=== PATIENT | female | born 1975 | race Caucasian/White ===

== ENCOUNTER 2021-07-12 15:00 | Emergency (ER) | payer BC ==
[~2021-07-12] VITALS: Ht 167 cm; Wt 72.5 kg
[~2021-07-12 15:00] MED LIST: CRS350T PO; DULO60CA6 PO; HYDR-2890 PO; HYDR1TAB PO; LORA-794 PO; METH4TAB PO; POTA20LI2 PO; SERT50TA PO
[2021-07-12] MEDS ORDERED: PROMETHAZINE INJ 25 MG/ML (PHENERGAN) AMP IVP ONE (15:30)
[2021-07-12 15:38] LABS: BASOPHILS % (AUTO) 0 % (0-10); EOSINOPHILS # (AUTO) 0.1 10^3/uL (0.0-0.3); EOSINOPHILS % (AUTO) 2 % (0-10); HEMATOCRIT 42 % (35-52); LYMPHOCYTES # (AUTO) 2.1 X 10^3 (1.0-4.0); LYMPHOCYTES % (AUTO) 32 % (12-44); MEAN CORPUSCULAR HEMOGLOBIN 30 pg (25-34); MEAN CORPUSCULAR HGB CONC 33 g/dL (32-36); MEAN CORPUSCULAR VOLUME 91 fL (80-99); MEAN PLATELET VOLUME 10.6 fL (9.0-12.2); MONOCYTES # (AUTO) 0.4 X 10^3 (0.0-1.0); MONOCYTES % (AUTO) 6 % (0-12); NEUTROPHILS % (AUTO) 60 % (42-75); PLATELET COUNT 172 10^3/uL (130-400); WHITE BLOOD COUNT 6.6 10^3/uL (4.3-11.0)
[2021-07-12 15:47] LABS: POTASSIUM 3.8 MMOL/L (3.6-5.0)
[2021-07-12 15:49] LABS: CALCIUM 9.1 MG/DL (8.5-10.1)
[2021-07-12 15:50] LABS: TOTAL PROTEIN 7.1 GM/DL (6.4-8.2)
[2021-07-12 15:52] LABS: BILIRUBIN,TOTAL 0.3 MG/DL (0.1-1.0)
[2021-07-12 15:54] LABS: CREATININE SERUM 0.74 MG/DL (0.60-1.30)
--- NOTE | 2021-07-12 15:55 | ED Neurological Problem ---
General Chief Complaint: Neurological Problems Nursing Triage Note: DIZZY, EXTREME HEAD PAIN DISORIENTED CO WORKERS STATE SHE WAS ACTING CONFUSED. HEAD IS SPINNING. Source: patient Exam Limitations: no limitations History of Present Illness Date Seen by Provider: July 12, 2021 Time Seen by Provider: 15:08 Initial Comments This 46-year-old woman presents to the emergency room with abrupt onset of vertiginous dizziness and disorientation while at work. Symptoms started at approximately 1430 while she was walking at work. She describes prior episodes of vertigo that have always been brief and have spontaneously resolved. This episode concerns her because of its intensity and persistence. She has not noted any focal neurologic deficits. Symptoms are worse with head movements but they are persistent even at rest without any head movement. She also had an unusual sensation in the right occipital head at onset. She now complains of pounding or throbbing headache with head movement and with standing associated with this vertigo. She is having difficulty walking due to the dizziness. Wh ile at work she was pressing her head against a wall to help her "feel grounded". She reported a minor paresthesia in her left arm during the early episode. She had no associated extremity weakness. The paresthesia resolved by the time of my exam. Allergies and Home Medications Allergies Coded Allergies: No Known Drug Allergies (Unverified , 05/26/11) Patient Home Medication List Home Medication List Reviewed: Yes Duloxetine Hcl (Cymbalta) 60 Mg Capsule.dr, 1 EACH PO DAILY, (Reported) Entered as Reported by: INDER RIVERA on 06/12/12 175 Hydrocodone Bit/Acetaminophen (Vicodin 5-500 Tablet) 1 Each Tablet, 1-2 EACH PO Q4HR PRN Prescribed by: MÓNICA DORANTES on 06/12/12 185 Lorazepam (Ativan) 0.5 Mg Tablet, 0.5 MG PO DAILY, (Reported) Entered as Reported by: RANDOLPH VALLES on 04/05/11 0717 Meclizine HCl (Meclizine HCl) 12.5 Mg Tablet, 12.5 MG PO Q6H PRN for DIZZINESS Prescribed by: ELTON HYANES on 07/12/21 1848 Methylprednisolone (Medrol Dose Pack) 4 Mg/Dose-Pack Tab.ds.pk, 1 PACKET PO UD Prescribed by: MÓNICA DORANTES on 06/12/12 1854 Promethazine HCl (Promethazine Tablet) 25 Mg Tablet, 25 MG PO Q6H PRN for LAURA SEA/VOMITING Prescribed by: ELTON HAYNES on 07/12/21 1848 Review of Systems Review of Systems Constitutional: no symptoms reported Eyes: No Symptoms Reported Ears, Nose, Mouth, Throat: no symptoms reported Respiratory: no symptoms reported Cardiovascular: no symptoms reported Gastrointestinal: no symptoms reported Genitourinary: no symptoms reported : No Musculoskeletal: no symptoms reported Skin: no symptoms reported Psychiatric/Neurological: See HPI Endocrine: No Symptoms Reported Hematologic/Lymphatic: No Symptoms Reported Past Cmubtui-Pgjgxp-Hgejdj Hx Patient Social History Tobacco Use?: Yes Tobacco type used: Cigarettes Use of E-Cig and/or Vaping dev: No Substance use?: No Alcohol Use?: No Pt feels they are or have been: No Immunizations Up To Date Influenza Vaccine Up-to-Date: No; Not Current Seasonal Allergies Seasonal Allergies: Yes Past Medical History Surgeries: Yes Section Respiratory: No Cardiac: No Neurological: No : No Genitourinary: No Gastrointestinal: No Musculoskeletal: No Endocrine: No HEENT: No Cancer: No Psychosocial: Yes Anxiety, Depression Integumentary: No Physical Exam Vital Signs Vital Signs - First Documented 07/12/21 15:05 Temp 35.8 Pulse 81 Resp 18 B/P (MAP) 129/77 (94) Pulse Ox 99 O2 Delivery Room Air Capillary Refill : Less Than 3 Seconds Height, Weight, BMI Height: '" Weight: lbs. oz. 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, no motor/sensory deficits, alert, normal mood/affect, oriented x 3 Crainal Nerves: normal hearing, normal speech, PERRL Coordination/Gait: normal finger to nose, normal gait Motor/Sensory: no motor deficit, no sensory deficit, no pronator drift Skin: normal color, warm/dry Progress/Results/Core Measures Results/Orders Lab Results Laboratory Tests Test 07/12/21 15:14 Range/Units White Blood Count 6.6 4.3-11.0 10^3/uL Red Blood Count 4.61 3.80-5.11 10^6/uL Hemoglobin 14.0 11.5-16.0 g/dL Hematocrit 42 35-52 % Mean Corpuscular Volume 91 80-99 fL Mean Corpuscular Hemoglobin 30 25-34 pg Mean Corpuscular Hemoglobin Concent 33 32-36 g/dL Red Cell Distribution Width 11.9 10.0-14.5 % Platelet Count 172 130-400 10^3/uL Mean Platelet Volume 10.6 9.0-12.2 fL Immature Granulocyte % (Auto) 0 % Neutrophils (%) (Auto) 60 42-75 % Lymphocytes (%) (Auto) 32 12-44 % Monocytes (%) (Auto) 6 0-12 % Eosinophils (%) (Auto) 2 0-10 % Basophils (%) (Auto) 0 0-10 % Neutrophils # (Auto) 4.0 1.8-7.8 X 10^3 Lymphocytes # (Auto) 2.1 1.0-4.0 X 10^3 Monocytes # (Auto) 0.4 0.0-1.0 X 10^3 Eosinophils # (Auto) 0.1 0.0-0.3 10^3/uL Basophils # (Auto) 0.0 0.0-0.1 10^3/uL Immature Granulocyte # (Auto) 0.0 0.0-0.1 10^3/uL Sodium Level 140 135-145 MMOL/L Potassium Level 3.8 3.6-5.0 MMOL/L Chloride Level 105 98-107 MMOL/L Carbon Dioxide Level 24 21-32 MMOL/L Anion Gap 11 5-14 MMOL/L Blood Urea Nitrogen 10 7-18 MG/DL Creatinine 0.74 0.60-1.30 MG/DL Estimat Glomerular Filtration Rate 101 BUN/Creatinine Ratio 14 Glucose Level 121 H 70-105 MG/DL Calcium Level 9.1 8.5-10.1 MG/DL Corrected Calcium 9.1 8.5-10.1 MG/DL Magnesium Level 1.7 1.6-2.4 MG/DL Total Bilirubin 0.3 0.1-1.0 MG/DL Aspartate Amino Transf (AST/SGOT) 26 5-34 U/L Alanine Aminotransferase (ALT/SGPT) 41 0-55 U/L Alkaline Phosphatase 82 40-136 U/L Total Protein 7.1 6.4-8.2 GM/DL Albumin 4.0 3.2-4.5 GM/DL Serum Test, Qualitative NEGATIVE NEGATIVE My Orders Orders - ELTON HENRIQUEZ MD Cbc With Automated Diff (07/12/21 15:19) Comprehensive Metabolic Panel (07/12/21 15:19) Hcg,Qualitative Serum (07/12/21 15:19) Magnesium (07/12/21 15:19) Ed Iv/Invasive Line Start (07/12/21 15:19) Ekg Tracing (07/12/21 15:19) Monitor-Rhythm Ecg Trace Only (07/12/21 15:19) Promethazine Injection (Phenergan Injec (07/12/21 15:30) Ct Head Wo-R/O Stroke (07/12/21 15:30) Ct Angio Head/Neck (07/12/21 15:30) Urine Bedside (07/12/21 15:34) Iohexol Injection (Omnipaque 350 Mg/Ml 1 (07/12/21 16:15) Sodium Chloride Flush (Catheter Flush Sy (07/12/21 16:15) Ns (Ivpb) (Sodium Chloride 0.9% Ivpb Bag (07/12/21 16:15) Medications Given in ED Current Medications Medications Dose Ordered Sig/Jose Route Start Time Stop Time Status Last Admin Dose Admin Iohexol 100 ml ONCE ONCE IV 07/12/21 16:15 07/12/21 16:16 DC 07/12/21 16:15 75 ML Promethazine HCl 25 mg ONCE ONCE IVP 07/12/21 15:30 07/12/21 15:31 DC 07/12/21 15:25 25 MG Sodium Chloride 10 ml NEEDED PRN IV 07/12/21 16:15 07/12/21 19:04 DC 07/12/21 16:15 10 ML Sodium Chloride 100 ml ONCE ONCE IV 07/12/21 16:15 07/12/21 16:16 DC 07/12/21 16:15 80 ML Vital Signs/I&O 07/12/21 07/12/21 15:05 19:12 Temp 35.8 Pulse 81 70 Resp 18 18 B/P (MAP) 129/77 (94) 122/79 Pulse Ox 99 97 O2 Delivery Room Air Room Air Blood Pressure Mean: 94 Progress Progress Note : Progress Note Patient had an unusual throbbing headache associated with the vertigo that she is not accustomed to. She also had persistent vertigo even at rest that was not easily fatigable. This created concern for additional pathology that may be triggering the vertigo. For this reason labs, CT head without contrast, and CT angio head and neck were all obtained. Work-up was unremarkable. Patient was treated with Phenergan and fluids. Vertigo resolved. She was allowed to discharge home with strict return precautions for dizziness associated with any other neurologic symptoms. Initial ECG Impression Date: July 12, 2021 Initial ECG Impression Time: 15:27 Initial ECG Rate: 67 Initial ECG Rhythm: Normal Sinus Initial ECG Intervals: Normal Initial ECG Impression: Normal Comment Normal sinus rhythm with no ST elevation or depression. No abnormal intervals or axis deviation. Departure Impression Primary Impression: Vertigo Additional Impressions: Acute headache Qualified Codes: R51.9 - Headache, unspecified Paresthesia Disposition: 01 HOME, SELF-CARE Condition: Improved Departure-Patient Inst. Decision time for Depature: 18:42 Referrals: NO,LOCAL PHYSICIAN (PCP/Family) Primary Care Physician Patient Instructions: Vertigo ED Add. Discharge Instructions: You may treat vertigo with meclizine as prescribed. If meclizine does not adequately treat the dizziness or if you have associated nausea, you may add Phenergan (promethazine) as prescribed. Both of these medications may make you drowsy. Do not operate machinery or drive when you take these medications. For headache you may take Tylenol and/or ibuprofen. If you have recurrent episodes of vertigo that are accompanied by other concerning symptoms such as vomiting, vision changes, severe headache, confusion, numbness or weakness of the extremities, difficulty with speech, facial drooping, or any other abrupt neurologic changes, please return to the emergency room immediately. If you have isolated vertigo that you are able to treat with meclizine and/or Phenergan, you may treat at home in a quiet restful environment. If you have isolated vertigo that is resistant to the medications, you may try the Forrest maneuver procedure described on the attached handout. There also demonstrations of this maneuver on YouTube or other websites you may view. Please follow-up with your primary care provider as soon as possible. Drink plenty of clear liquids to stay well-hydrated and work toward quitting smoking. Call your doctor with questions or concerns. All discharge instructions reviewed with patient and/or family. Voiced understanding. Scripts Promethazine HCl (Promethazine Tablet) 25 Mg Tablet 25 MG PO Q6H PRN for NAUSEA/VOMITING, #10 TAB Prov: ELTON HENRIQUEZ MD 07/12/21 Meclizine HCl (Meclizine HCl) 12.5 Mg Tablet 12.5 MG PO Q6H PRN for DIZZINESS, #10 TAB Prov: ELTON HENRIQUEZ MD 07/12/21 Work/School Note: Work Release Form Date Seen in the Emergency Department: July 12, 2021 Return to Work: July 13, 2021 Other Restrictions Listed Below: Stop work and follow discharge instructions if vertigo occurs at work. ELTON HENRIQUEZ MD July 12, 2021 15:55
[2021-07-12 15:56] LABS: MAGNESIUM 1.7 MG/DL (1.6-2.4)
[2021-07-12] MEDS ORDERED: NS 100 ML (IVPB) BAG IV ONE (16:15)
[2021-07-12] MEDS ORDERED: IOHEXOL 350 MG/ML 100 ML (OMNIPAQUE 350) VIAL IV ONE (16:15)
[2021-07-12] MEDS ORDERED: CATHETER FLUSH 10 ML SYR IV PRN (16:15)
--- NOTE | 2021-07-12 16:23 | Diagnostic Imaging Report ---
PROCEDURE: CT head wo r/o stroke. TECHNIQUE: Multiple contiguous axial images were obtained through the brain without the use of intravenous contrast. Auto Exposure Controls were utilized during the CT exam to meet ALARA standards for radiation dose reduction. INDICATION: Dizziness and presyncope, tingling down the left arm. Compared with the study 03/22/2011. FINDINGS: There is no hemorrhage, hydrocephalus, edema, mass, mass effect, nor evidence for elevated pressures. Basilar cisterns patent. There is no sulcal effacement. There has been no change. IMPRESSION: Stable unremarkable CT head. Dictated by: Dictated on workstation # [id number]
--- NOTE | 2021-07-12 16:46 | Diagnostic Imaging Report ---
CLINICAL INDICATION: Patient had dizziness and felt like going to pass out. Patient has tingling in the head and down left arm today. EXAMS: 1: Head CT with and without IV contrast. Auto Exposure Controls were utilized during the CT exam to meet ALARA standards for radiation dose reduction. 2: CT angiogram of the head and neck performed with 100 cc of Omnipaque 350 IV contrast. Sagittal and coronal MIP reformations were created for better visualization of vascular anatomy. CT angiogram was post-processed using RAPID LVO detection to include quantitative measurements of cerebral blood flow and automated results notification to the stroke and/or neurointerventional team. COMPARISON: Head CT without contrast dated 07/12/2021. FINDINGS: HEAD CT: There is no evidence of acute cerebral infarct, intracranial hemorrhage, or gross mass effect. There is no abnormal IV contrast enhancement. The brain parenchymal volume appears appropriate for patient's age. There is normal aaron-white matter distinction. There is no significant midline shift or herniation. There is no evidence of hydrocephalus. The basal cisterns are unremarkable. The skull, extracranial soft tissue, and orbits are unremarkable. The paranasal sinuses are unremarkable. Temporal bones show no significant abnormality. CT ANGIOGRAM: There is common origin of the brachiocephalic artery and left common carotid consistent with bovine arch. Two-vessel aortic arch is seen. CT angiogram of the neck and [place] of [place] is unremarkable with no large vessel occlusion, significant stenosis, vascular malformation, or aneurysm. Codominant bilateral vertebral arteries are noted. Dural venous sinuses are patent. Neck soft tissue structures show no significant abnormality. Visualized upper lung olivier are clear. Cervical spine is unremarkable. IMPRESSION: 1: Unremarkable CT scan of the brain. 2: Unremarkable CT angiogram of the head and neck. Results of this report were discussed with Dr. James Dacosta via the telephone on 07/12/2021 at 1638 hours. Dictated by: Dictated on workstation # [id number]
[2021-07-12] MEDS ORDERED: MECL-215 PO (18:48)
[2021-07-12] MEDS ORDERED: PROM25TA14 PO (18:48)
[2021-07-12 19:12] VITALS: BP 122/79
== END 2021-07-12 19:04 | disposition home or self-care (01) ==
LOC: EDUNIT# 15:00 → ER 15:01
DX: R42 Dizziness and giddiness (principal); R51.9 Headache, unspecified; R20.2 Paresthesia of skin; F17.210 Nicotine dependence, cigarettes, uncomplicated
CPT/HCPCS: 36415; 70450; 70496; 70498; 80053; 83735; 84703; 85025; 93005; 93041